=== PATIENT | female | born 1975 | race Caucasian/White ===

== ENCOUNTER 2019-04-29 17:00 | Inpatient (IN) | payer BC ==
[2019-04-29 17:05] VITALS: BMI 23.6
[2019-04-29 17:19] LABS: Mean Corpuscular HGB CONC 33.7 g/dL (32.0-36.0); Mean Corpuscular Hemoglobin 31.3 pg (27.0-31.0); Mean Corpuscular Volume 93.1 fL (78.0-98.0); Mean Platelet Volume 7.1 fL (7.4-10.4); Platelet Count 266 thou/uL (130-400); RBC Distribution Width 11.4 % (11.5-14.5); Red Blood Cell (RBC) Count 4.48 mill/uL (4.20-5.40); White Blood Cell (WBC) Count 12.4 thou/uL (4.8-10.8)
[2019-05-02] MEDS ORDERED: Gabapentin 300 MG CAP ONE ×2 (06:11→06:29)
[2019-05-02] MEDS ORDERED: CeleCOXIB 100 MG CAP ONE (06:12)
[2019-05-02] MEDS ORDERED: Famotidine/PF 20 mg/2ml Vial ONE (06:12)
[2019-05-02] MEDS ORDERED: Fentanyl 100 MCG/2 ML VIAL ONE ×2 (06:33→10:02)
[2019-05-02] MEDS ORDERED: Bupivacaine PF 0.5% 30 ML VIAL ONE (07:00)
[2019-05-02] MEDS ORDERED: Lidocaine 1% w/Epinephrine 1:100K 20 ML VIAL ONE (07:00)
[2019-05-02] MEDS ORDERED: Midazolam HCl 2 mg/2 ml Vial ONE (07:29)
[2019-05-02] MEDS ORDERED: Glycopyrrolate 0.2 MG/ML 5 ML SYRINGE ONE (09:28)
[2019-05-02] MEDS ORDERED: Dexamethasone 20 MG/5 ML VIAL ONE (09:28)
[2019-05-02] MEDS ORDERED: Rocuronium Bromide 10 MG/ML (10ML VIAL) ONE (09:28)
[2019-05-02] MEDS ORDERED: PROPOFOL 200 MG/20 ML VIAL ONE (09:28)
[2019-05-02] MEDS ORDERED: Ondansetron PF 4 MG/2 ML Vial ONE (09:28)
[2019-05-02] MEDS ORDERED: Morphine 2 MG/ML SYRINGE ONE (10:52)
[2019-05-02] MEDS ORDERED: HYDROcodone/Acetaminophen 5/325 mg Tablet ONE (12:38)
--- NOTE | 2019-05-03 13:59 | OP ---
DATE OF PROCEDURE: 05/02/2019 PREOPERATIVE DIAGNOSIS: Recurrent cervical dysplasia. POSTOPERATIVE DIAGNOSIS: Recurrent cervical dysplasia. PROCEDURES PERFORMED: Robotic-assisted total laparoscopic hysterectomy, bilateral salpingectomy, and Pap of oropharynx. ANESTHESIA: General endotracheal. DOBBY LOOM CHAIN PEGGER SURGEON: Cecilia Perrin PA-C ESTIMATED BLOOD LOSS: 50 mL. IVF: 1 L of crystalloid. URINE OUTPUT: 220 mL clear urine. COMPLICATIONS: None. DRAINS: Gregorio catheter. PATHOLOGY: Uterus, cervix, bilateral fallopian tubes, Pap smear, and HPV test of the oropharynx. FINDINGS: A foreshortened cervix with a history of a prior cold knife cone. Uterus was small and mobile, anteverted, sounded 6 cm. The vagina was normal appearing. No lesions or masses. The ovaries were normal appearing bilaterally as well as the fallopian tubes. The upper abdomen was within normal limits. The ureters were visualized during the entirety of the case, vermiculating in the pelvic sidewall. These were visualized also retroperitoneally during dissection of the broad ligament. The bladder was backfilled, and no inadvertent injury to the bladder occurred and hemostasis was excellent upon low pressure check. OPERATIVE TECHNIQUE: The patient was taken to the operating room, where general anesthesia was obtained without difficulty. The patient was prepped and draped in a sterile fashion in a dorsal lithotomy position. A Gregorio catheter was placed in the bladder. A speculum was placed in the vagina. The anterior lip of the cervix was grasped with a single-tooth tenaculum. The cervix was then dilated with Kyler dilators, and the uterus sounded to 6 cm. The LEV manipulator was assembled with a 4 cm ring and 6 cm tip. The tip was inserted into the uterus. The balloon did not inflate well secondary to small uterus as well as short cervical length, and the colpotomizer ring was advanced to fit snugly around the cervix. The vaginal occluder balloon was inflated. Legs were placed in low lithotomy. Attention was turned to the abdomen. The umbilicus was infiltrated with a mixture of 1% lidocaine with epi and bupivacaine, and a 12-mm incision was made in the umbilicus. The Veress needle was passed into the abdomen noting an opening pressure of 2 mmHg. Pneumoperitoneum was obtained without difficulty in maximal of 15 mmHg. The 12-mm trocar was advanced into the abdomen and confirmed placement with robotic camera. Steep Trendelenburg was obtained. The right and left lower quadrant robotic 8 mm trocars were placed under direct visualization after infiltrating with anesthetic and making a skin incision as described before. A right upper quadrant 11 mm internal medicine physician assistant port was also placed under direct visualization after infiltrating with anesthetic and making skin incision. The robot was then docked. The right robotic arm contained monopolar scissors. Left robotic arm contained a fenestrated bipolar. The right fallopian tube was grasped and elevated. The mesosalpinx was sequentially cauterized with the fenestrated and transected with the scissors until the medial portion was met. This was then clamped across, cauterized, and incised with the scissors and the fallopian tube was removed out of the abdomen. The utero-ovarian ligament was cauterized with the fenestrated and transected with the scissors down to the level of the midportion of the round ligament that was cauterized and transected. The posterior leaf of the broad ligament was then incised down to the level of the uterosacral. The retroperitoneum was dissected off the lateral uterine vessels, and the ureter was identified. The anterior leaf of the broad ligament was also incised down to the level of the bladder flap. The bladder flap was then created, undermining with the scissors as well as pushing and spreading with the fenestrated. This was incised after identifying a clear window over the pubocervical fascia and bluntly dissecting down adventitial fibers below the level of the colpotomizer ring. The uterine vessels were skeletonized adequately. Attention was turned to the left side, where the left fallopian tube was grasped and elevated. The mesosalpinx was sequentially clamped, cauterized, transected until the medial portion was met where the fallopian tube was clamped across, cauterized, transected, and removed out of the abdomen. The utero-ovarian was cauterized multiple times, as well as the round ligament in the midportion. These cauterized areas were incised with scissors and connected. Hemostasis was noted. The anterior leaf of the broad ligament was dropped down to the level of the bladder flap, and the posterior leaf of the broad ligament was also dropped down to the level of the uterosacral. The retroperitoneum was dissected off the uterine vessels, and the ureter was identified on the left. Laterally, the vessels were skeletonized, incising with the scissors as well as pushing and spreading with the fenestrated. The left uterine pedicle was cauterized multiple times with fenestrated and incised with the scissors. The right side of the uterine vessels were cauterized also and incised with the scissors. Hemostasis was achieved. The colpotomy was then performed with the scissors on the colpotomizer ring. Toward the end of the colpotomy, it was noted that the manipulator had slipped out of the uterus secondary to the balloon not being able to be inflated. The remainder of the colpotomy was then performed noting the limitations of the cervix and ensuring complete removal of the cervix, however, not taking too much vaginal mucosa. This was approximately only 2 cm remaining of the colpotomy and was incised without difficulty. Hemostasis was achieved of the vaginal cuff. The uterus was placed into the vagina as a means to maintain pneumoperitoneum. The vaginal cuff was irrigated, and hemostasis was achieved of oozing areas on the right uterine pedicle. The scissors were traded out for the needle taxi driver. The vaginal cuff was closed with a 2-0 barbed STRATAFIX suture in a running fashion and then ran back for second layer with excellent reapproximation. The needle was then removed out of the abdomen. Irrigation was performed of the pelvis. The bladder was backfilled, and noted to be free of any inadvertent injury as no saline leak on back filling and low pressure check was performed. James powder was placed over the vaginal cuff and pedicles, and all instruments were removed out of the abdomen. The robot was undocked. The fascia of the umbilical port was closed with a 0 Vicryl in a [id number] fashion. The skin was closed with 4-0 Monocryl in a subcuticular fashion. Dermabond was applied. The vaginal cuff was checked and noted to be hemostatic vaginally as well as excellent reapproximation. All instruments were removed from the vagina. The patient tolerated the procedure well. Sponge, lap, and needle counts were correct x2. The patient was taken to recovery room in stable condition. The patient received Ancef 2 g prior to the procedure. Job ID: [id number]
[2019-05-05 01:03] LABS: HPV High Risk Type 16 Negative (Negative); HPV High Risk Type 18 Negative (Negative)
[2019-05-05 01:05] LABS: HPV Other High Risk Types Negative (Negative)
== END 2019-05-02 15:40 | disposition home or self-care (01) | DRG 743 ==
LOC: SURG A 05-02 05:56
PROVIDERS: ADMIT Student in an Organized Health Care Education/Training Program; ATTEND Student in an Organized Health Care Education/Training Program
PROC: 0UT9FZZ Resection of Uterus, Via Natural or Artificial Opening With Percutaneous Endoscopic Assistance (ICD-10-PCS; principal; 2019-05-02)
PROC: 0UT7FZZ Resection of Bilateral Fallopian Tubes, Via Natural or Artificial Opening With Percutaneous Endoscopic Assistance (ICD-10-PCS; 2019-05-02)
PROC: 8E0W4CZ Robotic Assisted Procedure of Trunk Region, Percutaneous Endoscopic Approach (ICD-10-PCS; 2019-05-02)
DX: N87.9 Dysplasia of cervix uteri, unspecified (principal); J45.909 Unspecified asthma, uncomplicated; Z90.49 Acquired absence of other specified parts of digestive tract
CPT/HCPCS: 36415; 85027; 86850; 86900; 86901; 87624; 88142; 88307; G0123; J0690; J1100; J2250; J2270; J2405; J2704; J3010; S0020; S0028

== ENCOUNTER 2019-07-18 13:35 | Day surgery (SDC) | payer BC ==
[2019-07-18] MEDS ORDERED: Glycopyrrolate 0.2 MG/ML 5 ML SYRINGE ONE (14:24)
[2019-07-18] MEDS ORDERED: Ketorolac Tromethamine 30 MG/ML VIAL ONE (14:24)
[2019-07-18] MEDS ORDERED: Ondansetron PF 4 MG/2 ML Vial ONE ×2 (14:24→15:45)
[2019-07-18] MEDS ORDERED: Dexamethasone 20 MG/5 ML VIAL ONE (14:24)
[2019-07-18] MEDS ORDERED: Rocuronium Bromide 10 MG/ML (10ML VIAL) ONE (14:24)
[2019-07-18] MEDS ORDERED: Lidocaine 1% PF 5 ML VIAL ONE (14:24)
[2019-07-18] MEDS ORDERED: PROPOFOL 200 MG/20 ML VIAL ONE (14:24)
[2019-07-18] MEDS ORDERED: Lidocaine 1% w/Epinephrine 1:100K 20 ML VIAL ONE (15:31)
[2019-07-18] MEDS ORDERED: Bupivacaine PF 0.5% 30 ML VIAL ONE (15:31)
[2019-07-18 15:44] LABS: #Basophils 0.1 thou/uL (0.0-0.2); #Eosinphils 0.1 thou/uL (0.0-0.7); #Lymphocytes 1.8 thou/uL (1.20-3.40); #Monocytes 0.8 thou/uL (0.11-0.59); #Neutrophils 9.5 thou/uL (1.40-6.50); %Basophils 0.5 % (0.0-1.0); %Eosinophils 0.9 % (0.0-10.0); %Lymphocytes 14.8 % (21.0-51.0); %Monocytes 6.7 % (0.0-10.0); Hemoglobin 12.9 g/dL (12.0-16.0); Mean Corpuscular Hemoglobin 31.9 pg (27.0-31.0); Mean Platelet Volume 7.6 fL (7.4-10.4); Platelet Count 254 thou/uL (130-400); RBC Distribution Width 12.6 % (11.5-14.5); Red Blood Cell (RBC) Count 4.04 mill/uL (4.20-5.40); White Blood Cell (WBC) Count 12.4 thou/uL (4.8-10.8)
[2019-07-18] MEDS ORDERED: ceFOXitin 2 GM/50 ML Duplex BAG ONE (15:44)
[2019-07-18] MEDS ORDERED: Famotidine/PF 20 mg/2ml Vial ONE (15:45)
[2019-07-18] MEDS ORDERED: Midazolam HCl 2 mg/2 ml Vial ONE (15:46)
[2019-07-18] MEDS ORDERED: HYDROmorphone 0.5 MG/0.5 ML SYRINGE ONE (15:47)
[2019-07-18] MEDS ORDERED: Fentanyl 100 MCG/2 ML VIAL ONE (15:47)
[2019-07-18] MEDS ORDERED: Cyclobenzaprine 10 MG TAB ONE (18:57)
--- NOTE | 2019-07-18 22:02 | OP ---
DATE OF PROCEDURE: 07/18/2019 PREOPERATIVE DIAGNOSIS: Vaginal cuff dehiscence. POSTOPERATIVE DIAGNOSIS: Vaginal cuff dehiscence. PROCEDURES PERFORMED: Diagnostic laparoscopy and repair of vaginal cuff. ANESTHESIA: General endotracheal. BORING MACHINE OPERATOR HORIZONTAL SURGEON: Cecilia Perrin PA-C ESTIMATED BLOOD LOSS: 10 mL. IVF: 1300 mL crystalloid. URINE OUTPUT: 400 mL clear urine. FINDINGS: 2 cm defect in the middle of the vaginal cuff. There was omentum adherent to the vaginal cuff that was taken down with excellent cuff closure following the repair and excellent hemostasis. PATHOLOGY: None. COMPLICATIONS: None. DESCRIPTION OF PROCEDURE: The patient was taken to the operating room, where general anesthesia was obtained without difficulty. The patient was prepped and draped in a sterile fashion in the dorsal lithotomy position. A Gregorio catheter was placed in the bladder and a mix of 0.5% Marcaine plain and 1% lidocaine with epinephrine was placed into the umbilicus and a 5 mm skin incision was made. The Veress needle was passed to the abdomen, noting an opening pressure of 4 mmHg. Pneumoperitoneum was obtained. The Veress needle was removed and the 5 mm trocar and camera were passed into the abdomen optically. Steep Trendelenburg was obtained. Right and left lower quadrant 5 mm ports were placed under direct visualization after infiltrating with anesthetic. The pelvic structures were then manipulated. The ovaries were normal appearing. There were as above stated the omental adhesions to the vaginal cuff. These were filmy and taken down with the scissors, took about 10 minutes. A sponge stick was placed into the vagina and by elevating the vaginal cuff, there was definite defect in the midportion of the cuff on the suture line. There was no bowel injury. The bowel was healthy appearing. Down in the pelvis, there was no erythema or induration. The attention was then turned to the vagina while the restaurant assistant manager held the scope abdominally to observe the vaginal closure. The anterior and posterior aspects of the vaginal cuff where the defect was, was grasped with Allis clamps and 0 Vicryl was used in [id number] fashion to close the vaginal defect. All the suture material that remained in the vaginal cuff was initially removed and the edges of the vaginal cuff were bleeding and healthy. Five [id number] stitches were placed over the vaginal cuff and hemostasis was noted to be excellent. Irrigation was performed of the vaginal cuff both vaginally and abdominally and all instruments removed from the vagina. The instruments were removed out of the abdomen. Pneumoperitoneum was released. The 5 mm trocars were removed as well and the skin was closed with 4-0 Monocryl in a subcuticular fashion. Dermabond was applied. Gregorio catheter was removed prior to the patient coming to the recovery room. The patient tolerated the procedure well. Sponge, lap, and needle counts were correct x2. The patient was taken to recovery room in stable condition. The patient received cefoxitin 2 g prior to the procedure. Job ID: [id number]
== END 2019-07-18 20:15 | disposition home or self-care (01) ==
LOC: SDC 13:35
PROVIDERS: ATTEND Student in an Organized Health Care Education/Training Program
PROC: 0JQC0ZZ Repair Pelvic Region Subcutaneous Tissue and Fascia, Open Approach (ICD-10-PCS; principal; 2019-07-18)
DX: T81.32XA Disruption of internal operation (surgical) wound, not elsewhere classified, initial encounter (principal)
CPT/HCPCS: 85025; J0694; J1100; J1170; J1885; J2001; J2250; J2405; J2704; J3010; S0020; S0028